=== PATIENT | male | born 1975 | race Caucasian/White ===

== ENCOUNTER 2020-12-11 16:41 | Observation (INO) ==
[2020-12-11] MEDS ORDERED: *HR* LORazepam 2 MG/ML VIAL IVP ONE (17:31)
[2020-12-11 17:55] LABS: Basophils % 0.5 %; Eosinophils % 0.2 %; Hematocrit 43.5 % (37.5-50.1); Hemoglobin 15.2 g/dL (12.9-16.9); Immature Granulocytes % 0.2 % (0-4); Lymphocytes # 1.3 K/mcL (0.6-4.6); Lymphocytes % 22.6 %; Mean Corpuscular HGB Conc 34.9 g/dL (31.6-35.5); Mean Corpuscular Hemoglobin 32.7 pg (28.0-33.3); Mean Corpuscular Volume 93.5 fL (83.0-100.0); Mean Platelet Volume 10.6 fL (9.4-12.4); Monocytes # 0.8 K/mcL (0.0-1.3); Monocytes % 14.2 %; Neutrophils # 3.5 K/mcL (1.6-8.9); Platelet Count 191 K/mcL (140-400); Red Blood Count 4.65 M/mcL (4.19-5.50); Red Cell Distribution Width 12.6 % (11.5-14.5); Segmented Neutrophils % 62.3 %; White Blood Count 5.6 K/mcL (4.3-11.1)
[2020-12-11 18:16] LABS: Acetaminophen < 10 mcg/mL (10-20); Alanine Aminotransferase 93 Units/L (7-52); Albumin 4.8 g/dL (3.5-5.7); Albumin/Globulin Ratio 1.8 (1.1-2.2); Alkaline Phosphatase 77 Units/L (34-104); Aspartate Amino Transferase 143 Units/L (13-39); BUN/Creatinine Ratio 21 (6-26); Bilirubin,Total 1.5 mg/dL (0.3-1.0); Blood Urea Nitrogen 21 mg/dL (6-20); Calcium 9.7 mg/dL (8.6-10.3); Carbon Dioxide 22 mEq/L (23-29); Chloride 97 mEq/L (98-107); Ethanol < 10 mg/dL (Less than 10); Globulin 2.7 g/dL (2.4-3.5); Glucose 101 mg/dL (70-105); Osmolality,Calculated 283 (280-300); Potassium 3.5 mEq/L (3.5-5.1); Salicylate < 2.5 mg/dL (15.0-30.0); Sodium 135 mEq/L (136-145); Total Protein 7.5 g/dL (6.4-8.9); eGFR For African Americans > 60 (> 60); eGFR For Non-African Americans > 60 (> 60)
[2020-12-11 18:34] LABS: Bacteria,Urine Few per hpf (None-Few); Bilirubin,Urine Small (Negative); Blood,Urine Trace (Negative); Clarity,Urine Clear (Clear); Color,Urine Yellow (Yellow); Glucose,Urine (UA) Normal (Normal); Ketones,Urine >150 mg/dL (Negative); Leukocyte Esterase,Urine Negative (Negative); Mucus,Urine Few per lpf (None-Few); Nitrite,Urine Negative (Negative); PH,Urine 7.5 pH Units (5.0-8.0); Protein,Urine 100 mg/dL (Neg-Trace); RBC,Urine 30-50 per hpf (0-3); Specific Gravity,Urine > 1.030 (1.010-1.025); Squamous Epithelial Cell,Urine Few per hpf (None-Few); Urobilinogen,Urine >=8.0 mg/dL (Normal); WBC,Urine 0-3 per hpf (0-3)
[2020-12-11 18:43] LABS: Amphetamine Screen,Urine Negative ng/mL (Cutoff=1000); Barbiturate Screen,Urine Negative ng/mL (Cutoff=200); Benzodiazepines Screen,Urine Negative ng/mL (Cutoff=200); Cannabinoid Screen,Urine Positive ng/mL (Cutoff = 50); Cocaine Screen,Urine Negative ng/mL (Cutoff= 300); Opiate Screen,Urine Negative ng/mL (Cutoff=300); Phencyclidine Screen,Urine Negative ng/mL (Cutoff=25)
[2020-12-11] MEDS ORDERED: Naloxone 0.4 MG/ML INJ IVP PRN (20:24)
[2020-12-11] MEDS ORDERED: Ondansetron ODT 4 MG TAB.RAPDIS SL PRN (20:24)
[2020-12-11] MEDS ORDERED: Ibuprofen 400 MG TABLET PO PRN (20:24)
[2020-12-11] MEDS ORDERED: *HR* LORazepam 2 MG/ML VIAL IVP PRN ×2 (20:33)
[2020-12-11] MEDS: 0.9 % Sodium Chloride 1,000 ML IVC SCH (21:10)
[2020-12-11] MEDS: Nicotine 14 MG PATCH.TD24 TD SCH (22:48)
[2020-12-11] MEDS ORDERED: Melatonin 3 MG TABLET PO ONE (23:20)
[2020-12-12 02:38] LABS: Basophils % 0.7 %; Eosinophils # 0.1 K/mcL (0.0-0.6); Eosinophils % 1.3 %; Hematocrit 44.2 % (37.5-50.1); Hemoglobin 14.7 g/dL (12.9-16.9); Immature Granulocytes % 0.2 % (0-4); Lymphocytes # 1.6 K/mcL (0.6-4.6); Lymphocytes % 34.8 %; Mean Corpuscular HGB Conc 33.3 g/dL (31.6-35.5); Mean Corpuscular Hemoglobin 32.2 pg (28.0-33.3); Mean Corpuscular Volume 96.7 fL (83.0-100.0); Mean Platelet Volume 10.6 fL (9.4-12.4); Monocytes # 0.4 K/mcL (0.0-1.3); Monocytes % 8.9 %; Neutrophils # 2.5 K/mcL (1.6-8.9); Platelet Count 168 K/mcL (140-400); Red Blood Count 4.57 M/mcL (4.19-5.50); Red Cell Distribution Width 12.5 % (11.5-14.5); Segmented Neutrophils % 54.1 %; White Blood Count 4.6 K/mcL (4.3-11.1)
[2020-12-12 02:42] LABS: Prothrombin Time 11.5 Seconds (9.4-12.1)
[2020-12-12 03:03] LABS: BUN/Creatinine Ratio 20 (6-26); Blood Urea Nitrogen 21 mg/dL (6-20); Carbon Dioxide 25 mEq/L (23-29); Chloride 103 mEq/L (98-107); Glucose 138 mg/dL (70-105); Potassium 3.5 mEq/L (3.5-5.1); Sodium 137 mEq/L (136-145); eGFR For African Americans > 60 (> 60); eGFR For Non-African Americans > 60 (> 60)
[2020-12-12 03:04] LABS: Alanine Aminotransferase 84 Units/L (7-52); Albumin/Globulin Ratio 1.7 (1.1-2.2); Alkaline Phosphatase 67 Units/L (34-104); Aspartate Amino Transferase 127 Units/L (13-39); Chol/HDL Ratio 6.1 (0-4.9); Cholesterol 269 mg/dL (< 200); Globulin 2.3 g/dL (2.4-3.5); HDL Cholesterol 44 mg/dL (40-59); LDL Cholesterol,Calculated 174 mg/dL (< 100); Magnesium 1.9 mg/dL (1.6-2.6); Osmolality,Calculated 289 (280-300); Total Protein 6.3 g/dL (6.4-8.9); Triglycerides 256 mg/dL (< 150)
[2020-12-12 03:09] LABS: Thyroid Stimulating Hormone 4.526 mcIU/mL (0.340-5.600)
[2020-12-12 03:15] LABS: Hepatitis B Surface Antigen Nonreactive (Nonreactive)
[2020-12-12 03:47] LABS: Hepatitis C Virus Antibody Nonreactive (Nonreactive)
[2020-12-12 03:48] LABS: Hepatitis B Core IgM Nonreactive (Nonreactive)
[2020-12-12 04:56] LABS: Hepatitis A Antibody IgM Nonreactive (Nonreactive)
[2020-12-12] MEDS: 0.9 % Sodium Chloride 1,000 ML IVC SCH (05:35)
[2020-12-12 07:38] VITALS: BP 118/79; PULSE 94; TEMP 97.6; O2SAT 97
[2020-12-12] MEDS: Nicotine 14 MG PATCH.TD24 TD SCH (08:34)
[2020-12-12] MEDS ORDERED: Thiamine (B-1) 100 MG, Folic Acid 1 MG, MVI, adult with vitamin K 10 ML in 0.9 % Sodi... IVPB SCH (18:00)
== END 2020-12-12 11:22 | disposition home or self-care (01) ==
LOC: EMEROOARM 16:41 → 3BNU 16:41 → SUATTDRO 20:22 → 3BNU 20:56
PROVIDERS: ADMIT Student in an Organized Health Care Education/Training Program; ATTEND Internal Medicine